=== PATIENT | female | born 1995 | race Two or more races ===

== ENCOUNTER 2017-09-23 12:04 | Emergency (ER) | payer BC, OTHER ==
--- NOTE | 2017-09-23 12:26 | EDM.PDOC ---
ED HPI GENERAL MEDICAL PROBLEM - General Chief Complaint: Abdominal Pain Stated Complaint: [facility] Time Seen by Provider: 09/23/17 12:26 Source of Information: Reports: Patient History Limitations: Reports: No Limitations - History of Present Illness INITIAL COMMENTS - FREE TEXT/NARRATIVE: Patient is a 22 y/o female who presents to the E.D. complaining of abdominal pain with nausea and syncope episode. Patient states she awoke this morning with severe lower abdominal pain with nausea. States she was taking a shower and felt as if symptoms were getting worse and she was going to pass out. States she got of the shower dried herself off and clothed herself. States she walked out into the lounge looking for friends and states the symptoms progressively got worse to the point where she believes she passed out for a short period of time. States ambulance arrived and transported to the ED. She states the pain to her lower abdomen has drastically improved. She remains nauseated with no vomiting. She's been having vaginal bleeding with recent onset of menstrual cycle this morning. She saturated 1 pad today. Bleeding is not severe. States she has history of severe menstrual cramps and in the past is taking Panadol which is a narcotic pain medication. Currently the pain is rated 3 out of 10 encompassing the lower abdomen in the right adnexa to the suprapubic region and also left adnexa. She is fairly anxious with admission to the ED. She denies being sexually active. She denies any fever, chills, dizziness, SOB, nausea vomiting, sensation of room spinning, diarrhea, dysuria, numbness or tingling to extremities, weakness, or any additional complaints. She states with admission to the ED she is feeling a lot better. She has no additional past medical history and currently taking no additional medications. No surgical history. Patient is here from [place] going to college her in [place]. 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 ED EXAM, GI/ABD - Physical Exam Exam: See Below Exam Limited By: No Limitations General Appearance: Alert, WD/WN, Anxious Eyes: Bilateral: Normal Appearance, EOMI Ears: Hearing Grossly Normal Nose: Normal Inspection Throat/Mouth: Normal Inspection, Normal Oropharynx, Normal Voice, No Airway Compromise Head: Atraumatic, Normocephalic Neck: Normal Inspection, Supple, Non-Tender, Full Range of Motion Respiratory/Chest: No Respiratory Distress, Lungs Clear, Normal Breath Sounds, No Accessory Muscle Use, Chest Non-Tender Cardiovascular: Normal Peripheral Pulses, Regular Rate, Rhythm, No Murmur GI/Abdominal Exam: Normal Bowel Sounds, Soft, No Organomegaly, No Distention, Tender (Throughout the lower quadrant including the right adnexa, suprapubic, and left adnexa.) (Female) Exam: Deferred Rectal (Female) Exam: Deferred Back Exam: Normal Inspection. No: CVA Tenderness (L), CVA Tenderness (R) Neurological: Alert, Oriented, CN II-XII Intact, Normal Cognition, No Motor/ Sensory Deficits Psychiatric: Normal Affect, Anxious Skin Exam: Warm, Dry, Intact, Normal Color Course - Vital Signs Last Recorded V/S: Last Vital Signs Temp 97.1 F 09/23/17 12:09 Pulse 69 09/23/17 12:09 Resp 14 09/23/17 12:09 BP 108/73 09/23/17 12:09 Pulse Ox 96 09/23/17 12:09 Orthostatic Blood Pressure [ 115/72 Standing] Orthostatic Blood Pressure [ 107/68 Sitting] Orthostatic Blood Pressure [ 104/58 Supine] - Orders/Labs/Meds Orders: Active Orders 24 hr Category Date Time Status Insert Urinary Catheter [OM.PC] Q24H Care 09/23/17 13:45 Ordered Orthostatic Vital Signs [RC] ASDIRECTED Care 09/23/17 12:42 Active Urinary Catheter Assessment [RC] ASDIRECTED Care 09/23/17 13:39 Active Abdomen 2V AP Flat Upright [CR] Stat Exams 09/23/17 12:43 Taken Labs: Laboratory Tests 09/23/17 09/23/17 09/23/17 Range/Units 13:35 13:42 13:42 WBC 9.03 (3.98-10.04) K/mm3 RBC 5.02 (3.98-5.22) M/mm3 Hgb 9.2 L (11.2-15.7) gm/L Hct 31.3 L (34.1-44.9) % MCV 62.4 L (79.4-94.8) fl MCH 18.3 L (25.6-32.2) pg MCHC 29.4 L (32.2-35.5) g/dl RDW Std Deviation 44.0 (36.4-46.3) fL Plt Count 341 (182-369) K/mm3 MPV 11.0 (9.4-12.3) fl Neut % (Auto) 81.8 H (34.0-71.1) % Lymph % (Auto) 10.0 L (19.3-51.7) % [place] % (Auto) 7.6 (4.7-12.5) % Eos % (Auto) 0.3 L (0.7-5.8) Baso % (Auto) 0.1 (0.1-1.2) % Neut # (Auto) 7.38 H (1.56-6.13) K/mm3 Lymph # (Auto) 0.90 L (1.18-3.74) K/mm3 [place] # (Auto) 0.69 H (0.24-0.36) K/mm3 Eos # (Auto) 0.03 L (0.04-0.36) K/mm3 Baso # (Auto) 0.01 (0.01-0.08) K/mm3 Manual Slide Review Abnormal smear Sodium 140 (136-145) mEq/L Potassium 4.1 (3.5-5.1) mEq/L Chloride 106 (98-107) mEq/L Carbon Dioxide 24 (21-32) mEq/L Anion Gap 14.1 (5-15) BUN 10 (7-18) mg/dL Creatinine 0.6 (0.55-1.02) mg/dL Est Cr Clr Drug Dosing 131.64 mL/min Estimated GFR (MDRD) > 60 (>60) mL/min BUN/Creatinine Ratio 16.7 (14-18) Glucose 93 (74-106) mg/dL Calcium 8.3 L (8.5-10.1) mg/dL Total Bilirubin 0.3 (0.2-1.0) mg/dL AST 13 L (15-37) U/L ALT 15 (14-59) U/L Alkaline Phosphatase 74 (46-116) U/L C-Reactive Protein < 0.2 (<1.0) mg/dL Total Protein 7.5 (6.4-8.2) g/dl Albumin 3.6 (3.4-5.0) g/dl Globulin 3.9 gm/dL Albumin/Globulin Ratio 0.9 L (1-2) HCG, Qual (NEGATIVE) Urine Color Yellow (Yellow) Urine Appearance Clear (Clear) Urine pH 6.0 (5.0-8.0) Ur Specific [place] 1.025 (1.005-1.030) Urine Protein Negative (Negative) Urine Glucose (UA) Negative (Negative) Urine Ketones Negative (Negative) Urine Occult Blood Negative (Negative) Urine Nitrite Negative (Negative) Urine Bilirubin Negative (Negative) Urine Urobilinogen 0.2 (0.2-1.0) Ur Leukocyte Esterase Negative (Negative) Urine RBC 0-5 (0-5) /hpf Urine WBC 0-5 (0-5) /hpf Ur Epithelial Cells 5-10 H (0-5) /hpf Urine Bacteria Moderate H (FEW) /hpf Urine Mucus Moderate H (FEW) /hpf /14/17 Range/Units 13:42 WBC (3.98-10.04) K/mm3 RBC (3.98-5.22) M/mm3 Hgb (11.2-15.7) gm/L Hct (34.1-44.9) % MCV (79.4-94.8) fl MCH (25.6-32.2) pg MCHC (32.2-35.5) g/dl RDW Std Deviation (36.4-46.3) fL Plt Count (182-369) K/mm3 MPV (9.4-12.3) fl Neut % (Auto) (34.0-71.1) % Lymph % (Auto) (19.3-51.7) % [place] % (Auto) (4.7-12.5) % Eos % (Auto) (0.7-5.8) Baso % (Auto) (0.1-1.2) % Neut # (Auto) (1.56-6.13) K/mm3 Lymph # (Auto) (1.18-3.74) K/mm3 [place] # (Auto) (0.24-0.36) K/mm3 Eos # (Auto) (0.04-0.36) K/mm3 Baso # (Auto) (0.01-0.08) K/mm3 Manual Slide Review Sodium (136-145) mEq/L Potassium (3.5-5.1) mEq/L Chloride (98-107) mEq/L Carbon Dioxide (21-32) mEq/L Anion Gap (5-15) BUN (7-18) mg/dL Creatinine (0.55-1.02) mg/dL Est Cr Clr Drug Dosing mL/min Estimated GFR (MDRD) (>60) mL/min BUN/Creatinine Ratio (14-18) Glucose (74-106) mg/dL Calcium (8.5-10.1) mg/dL Total Bilirubin (0.2-1.0) mg/dL AST (15-37) U/L ALT (14-59) U/L Alkaline Phosphatase (46-116) U/L C-Reactive Protein (<1.0) mg/dL Total Protein (6.4-8.2) g/dl Albumin (3.4-5.0) g/dl Globulin gm/dL Albumin/Globulin Ratio (1-2) HCG, Qual Negative (NEGATIVE) Urine Color (Yellow) Urine Appearance (Clear) Urine pH (5.0-8.0) Ur Specific [place] (1.005-1.030) Urine Protein (Negative) Urine Glucose (UA) (Negative) Urine Ketones (Negative) Urine Occult Blood (Negative) Urine Nitrite (Negative) Urine Bilirubin (Negative) Urine Urobilinogen (0.2-1.0) Ur Leukocyte Esterase (Negative) Urine RBC (0-5) /hpf Urine WBC (0-5) /hpf Ur Epithelial Cells (0-5) /hpf Urine Bacteria (FEW) /hpf Urine Mucus (FEW) /hpf Meds: Medications Discontinued Medications Generic Name Dose Route Start Last Admin Trade Name Freq PRN Reason Stop Dose Admin Sodium Chloride 1,000 mls @ 999 mls/hr 09/23/17 12:42 09/23/17 13:04 Normal Saline IV 09/23/17 13:42 999 mls/hr ONETIME ONE Administration Ketorolac Tromethamine 30 mg 09/23/17 14:06 09/23/17 14:45 Toradol IVPUSH 09/23/17 14:07 30 mg ONETIME ONE Administration Ondansetron HCl 4 mg 09/23/17 12:42 09/23/17 13:05 Zofran IVPUSH 09/23/17 12:43 4 mg ONETIME ONE Administration - Re-Assessments/Exams Free Text/Narrative Re-Assessment/Exam: IV established with normal saline 999 mls per hour and Zofran 4 mg IVP. Initial labs and studies include CBC, chem 14, hCG, UA, CRP along with a two- view of the abdomen. 09/23/17 14:58 Labs reviewed: White blood cell count 9.03, hemoglobin 9.2, MCV 62.4, total percentage is 81.8, neutrophil #7.38, abnormal smear RBC morphology , platelet count 341. Presume the patient has iron deficiency anemia. Chemistry panel essentially normal. CRP less than 0.2. HCG was negative. UA negative for infection or concerning findings. X-ray of the abdomen revealed nonspecific air in stool patterns. No concerning findings present. Orthostatic vitals are negative. Patient's pain has improved with the Toradol. She is wishing to be discharged home. On reexamination of the abdomen there is slight tenderness to the suprapubic region to which patient states consistent with menstrual cramping. Will discharge patient home with instructions as documented. Departure - Departure Time of Disposition: 14:58 Disposition: Home, Self-Care 01 Clinical Impression: Lower abdominal pain, Severe menstrual cramps, Vasovagal syncope Anemia Qualifiers: Anemia type: unspecified type Qualified Code(s): D64.9 - Anemia, unspecified - Discharge Information Prescriptions: Ferrous Sulfate 325 mg PO BID #60 tablet Instructions: Abdominal Pain, Adult, [id number] Referrals: Rose Tobar PA [Physician Maintenance Scheduler] - Forms: ED Department Discharge, ED Return to Work/School Form Additional Instructions: As discussed will have you take ferous sulfate 1 tab twice a day for anemia. Please call and make an appointment with a primary care provider at [facility] in [place] to be evaluated the first part of next week for reevaluation. In addition they should further workup your anemia and the cause of it. Most likely this is related to iron deficiency. Take ibuprofen 600 mg every 6 hours and Tylenol 650 mg every 6 hours in alternating fashion for pain. Push the fluids. Return to the ED if you develop any new or worsening symptoms. - My Orders Last 24 Hours: My Active Orders 09/23/17 12:42 Orthostatic Vital Signs [RC] ASDIRECTED 09/23/17 12:43 Abdomen 2V AP Flat Upright [CR] Stat 09/23/17 13:39 Urinary Catheter Assessment [RC] ASDIRECTED 09/23/17 13:45 Insert Urinary Catheter [OM.PC] Q24H - Assessment/Plan Last 24 Hours: My Active Orders 09/23/17 12:42 Orthostatic Vital Signs [RC] ASDIRECTED 09/23/17 12:43 Abdomen 2V AP Flat Upright [CR] Stat 09/23/17 13:39 Urinary Catheter Assessment [RC] ASDIRECTED 09/23/17 13:45 Insert Urinary Catheter [OM.PC] Q24H
[2017-09-23] MEDS ORDERED: Ondansetron 4 MG/2 ML SDV IVPUSH ONE (12:42)
[2017-09-23] MEDS ORDERED: Sodium Chloride 0.9% 1,000 ML IV ONE (12:42)
[2017-09-23] MEDS ORDERED: Ketorolac 30 MG/ML SDV IVPUSH ONE (14:06)
--- NOTE | 2017-09-24 07:43 | CR ---
Abdomen: Supine and upright views of the abdomen were obtained. Comparison: No prior abdominal x-ray. Bowel gas pattern is normal. No abnormal calcifications or soft tissue abnormality is seen. Bony structures are unremarkable. No free air is seen. Minimal scoliosis is present within the spine. Impression: 1. Unremarkable two-view abdominal x-ray. Diagnostic code #2
== END 2017-09-23 15:09 | disposition home or self-care (01) ==
LOC: JD.ED 12:04
DX: N94.6 Dysmenorrhea, unspecified (principal); D64.9 Anemia, unspecified; R55 Syncope and collapse
CPT/HCPCS: 36415; 51702; 74020; 80053; 81001; 84703; 85025; 86140; 96361; 96374; 96375; 99285; J1885; J2405; J7040; P9612; 99284